=== PATIENT | female | born 1940 | race Caucasian/White ===

== ENCOUNTER 2016-08-06 00:32 | Emergency (ER) | payer OTHER ==
[~2016-08-06] VITALS: Ht 152.4 cm; Wt 53.0 kg
[~2016-08-06 00:32] MED LIST: BUSP10TA2; CALC-378; EYE DROP; OMEG-14; PARO10TA26; PREN1TAB49; SIMV5TAB31
[2016-08-06 01:10] VITALS: Ht 152.4 cm; Wt 53.0 kg
[2016-08-06] MEDS ORDERED: FLUORESCEIN STRIP LEFT EYE ONE (03:00)
[2016-08-06] MEDS ORDERED: TETRACAINE 0.5% 4 ML OPH LEFT EYE ONE (03:00)
--- NOTE | 2016-08-06 03:09 | ERD ---
ER Documentation Chief Complaint Date/Time DATE: 08/06/16 TIME: 03:07 Chief Complaint Unable to remove contact lens HPI 75-year-old female presents here in emergency department for complaints of possible contact lens stuck on the left eye, patient was trying to remove it, does not get removed. Patient feels that the contact lenses tach on the left eye. Patient denies any vision changes. Patient denies any eye discharge. Patient denies any direct trauma in the eye. She is complaining of pain and burning pain, with 3/10 scale, worst on touching the area ROS All systems reviewed and are negative except as per history of present illness. Medications Home Meds Active Scripts Moxifloxacin Hcl* (Vigamox*) 0.5% - 3 Ml Opht, 1 DROP LEFT EYE TID for 7 Days, EA Prov:ROSA CAZARES [employer] 08/06/16 Reported Medications [Eye Drop] No Conflict Check 10/14/10 Fish Oil/[place]-3 Fatty Acids (Fish Oil 1,200 Mg Softgel) 1 Cap Capsule 01/17/10 Calcium Carbonate/Vitamin D3 (Calcium + D 600 Mg Tablet) 1 Tab Tablet 01/17/10 Vits W-Ca,Fe,Fa(<1MG) () 1 Tab Tablet 01/17/10 Simvastatin* (Zocor*) 5 Mg Tablet 01/17/10 Buspirone Hcl* (Buspirone Hcl*) 10 Mg Tablet 01/17/10 Paroxetine Hcl* (Paxil*) 10 Mg Tablet 01/17/10 Allergies Allergies: Coded Allergies: Penicillins (Verified Allergy, Mild, 10/14/10) PMhx/Soc Medical and Surgical Hx: pt denies Surgical Hx History of Surgery: No Anesthesia Reaction: No Hx Neurological Disorder: No Hx Respiratory Disorders: No Hx Cardiac Disorders: Yes (DYSLIPIDEMIA) Hx Psychiatric Problems: No Hx Miscellaneous Medical Probl: No Hx Alcohol Use: No Hx Substance Use: No Hx Tobacco Use: Yes Smoking Status: Light tobacco smoker FmHx Family History: No coronary disease, No diabetes, No other Physical Exam Vitals Vital Signs Date Time Temp Pulse Resp B/P Pulse Ox O2 Delivery O2 Flow Rate FiO2 08/06/16 01:10 97.3 96 20 119/58 96 Physical Exam GENERAL: The patient is well developed and appropriate for usual state of health, in no apparent distress. CHEST: Clear to auscultation bilaterally. There are no rales, wheezes or rhonchi. HEART: Regular rate and rhythm. No murmurs, clicks, rubs or gallops. No S3 or S4. ABDOMEN: Soft, nontender and nondistended. Good bowel sounds. No rebound or guarding. No gross peritonitis. No gross organomegaly or masses. No Campbell sign or McBurney point tenderness. BACK: No midline or flank tenderness. EXTREMITIES: Equal pulses bilaterally. There is no peripheral clubbing, cyanosis or edema. No focal swelling or erythema. Full range of motion. Grossly neurovascularly intact. NEURO: Alert and oriented. Cranial nerves 2-12 intact. Motor strength in all 4 extremities with 5/5 strength. Sensation grossly intact. Normal speech and gait. SKIN: There is no apparent rash or petechia. The skin is warm and dry. HEMATOLOGIC AND LYMPHATIC: There is no evidence of excessive bruising or lymphedema. No gross cervical, axillary, or inguinal lymphadenopathy. Results 24 hrs Current Medications Medications (Trade) Dose Ordered Sig/[place] Route PRN Reason Start Time Stop Time Status Last Admin Dose Admin Tetracaine HCl (Tetracaine 0.5% Steri-Unit Sheryl) 1 drop ONCE ONCE LEFT EYE 08/06/16 03:00 3 03:01 DC Fluorescein Sodium (Redag-S-Myxhb) 1 strip ONCE ONCE LEFT EYE 08/06/16 03:00 3 03:01 DC Procedure Note: After obtaining informed consent, the left eye was stained using fluorescein dye. Tetracaine opth soln was also used to numb the left eye. After staining the eye, A Wood's lamp was used to evaluate the eye. Noted left eye to have the contact lens, this was removed without any difficulty. No corneal abrasions noted. Patient tolerated procedure well. Procedures/MDM Medical decision making: Patient's left eye contact lens was removed without any difficulty. No corneal abrasions noted. No symptoms of any other eye emergencies at this time. Patient was given Vigamox ophthalmic solution to prevent infection of the affected area, is advised to see eye doctor within 2-3 days for further evaluation. Patient was advised to return to emergency department for any worsening symptoms. Departure Diagnosis: Primary Impression: Eye foreign body Encounter type: initial encounter Laterality: left Qualified Code: T15.92XA - Eye foreign body, left, initial encounter Condition: Stable ROSA CAZARES NP Aug 06, 2016 03:09
[2016-08-06] MEDS ORDERED: VIGA LEFT EYE (04:03)
[2016-08-06 04:25] VITALS: PULSE 78; RESP 20; TEMP 98
== END 2016-08-06 05:14 | disposition home or self-care (01) ==
LOC: FTE 00:32
DX: T15.92XA Foreign body on external eye, part unspecified, left eye, initial encounter (principal); F17.210 Nicotine dependence, cigarettes, uncomplicated; W22.8XXA Striking against or struck by other objects, initial encounter; Y92.9 Unspecified place or not applicable
CPT/HCPCS: 99283

== ENCOUNTER 2016-11-19 01:05 | Emergency (ER) | payer OTHER ==
[~2016-11-19] VITALS: Wt 55.0 kg
[~2016-11-19 01:05] MED LIST changes: +VIGA LEFT EYE
--- NOTE | 2016-11-19 02:27 | ERD ---
ER Documentation Chief Complaint Date/Time DATE: 11/19/16 TIME: 02:23 Chief Complaint Contact lens stuck on the left eye. HPI 76 year old female presents here in emergency department for a contact lens stuck on to the left upper eyelid. Patient has had this same incident before. Patient denies any pain. Denies any vision changes. ROS All systems reviewed and are negative except as per history of present illness. Medications Home Meds Active Scripts Moxifloxacin Hcl* (Vigamox*) 0.5% - 3 Ml Opht, 1 DROP LEFT EYE TID for 7 Days, EA Prov:ROSA CAZARES [employer] 08/06/16 Reported Medications [Eye Drop] No Conflict Check 10/14/10 Fish Oil/[place]-3 Fatty Acids (Fish Oil 1,200 Mg Softgel) 1 Cap Capsule 01/17/10 Calcium Carbonate/Vitamin D3 (Calcium + D 600 Mg Tablet) 1 Tab Tablet 01/17/10 Vits W-Ca,Fe,Fa(<1MG) () 1 Tab Tablet 01/17/10 Simvastatin* (Zocor*) 5 Mg Tablet 01/17/10 Buspirone Hcl* (Buspirone Hcl*) 10 Mg Tablet 01/17/10 Paroxetine Hcl* (Paxil*) 10 Mg Tablet 01/17/10 Allergies Allergies: Coded Allergies: Penicillins (Verified Allergy, Mild, 10/14/10) PMhx/Soc History of Surgery: No Anesthesia Reaction: No Hx Neurological Disorder: No Hx Respiratory Disorders: No Hx Cardiac Disorders: Yes (DYSLIPIDEMIA) Hx Psychiatric Problems: No Hx Miscellaneous Medical Probl: No Hx Alcohol Use: No Hx Substance Use: No Hx Tobacco Use: Yes FmHx Family History: No coronary disease, No diabetes, No other Physical Exam Vitals Vital Signs Date Time Temp Pulse Resp B/P Pulse Ox O2 Delivery O2 Flow Rate FiO2 11/19/16 01:11 97.4 96 20 119/67 96 Physical Exam GENERAL: The patient is well developed and appropriate for usual state of health, in no apparent distress. HEENT: Atraumatic. Ears: Normal tympanic membrane, no erythema or bulging. No ear canal swelling. No ear discharge. Nose: normal nasal turbinates, no erythema or swelling. Normal nasal discharge. Throat: oropharynx clear. No tonsillar swelling or tonsillar exudates. No lymphadenopathy. CHEST: Clear to auscultation bilaterally. There are no rales, wheezes or rhonchi. HEART: Regular rate and rhythm. No murmurs, clicks, rubs or gallops. No S3 or S4. ABDOMEN: Soft, nontender and nondistended. Good bowel sounds. No rebound or guarding. No gross peritonitis. No gross organomegaly or masses. No Campbell sign or McBurney point tenderness. BACK: No midline or flank tenderness. EXTREMITIES: Equal pulses bilaterally. There is no peripheral clubbing, cyanosis or edema. No focal swelling or erythema. Full range of motion. Grossly neurovascularly intact. NEURO: Alert and oriented. Cranial nerves 2-12 intact. Motor strength in all 4 extremities with 5/5 strength. Sensation grossly intact. Normal speech and gait. SKIN: There is no apparent rash or petechia. The skin is warm and dry. HEMATOLOGIC AND LYMPHATIC: There is no evidence of excessive bruising or lymphedema. No gross cervical, axillary, or inguinal lymphadenopathy. Results 24 hrs Current Medications Medications (Trade) Dose Ordered Sig/[place] Route PRN Reason Start Time Stop Time Status Last Admin Dose Admin Tetracaine HCl (Tetracaine 0.5% Steri-Unit Sheryl) 1 drop ONCE ONCE LEFT EYE 11/19/16 02:30 11/19/16 02:31 DC Procedures/MDM Procedure note: After patient's verbal consent, the left eye was numbed using tetracaine ophthalmic solution, after numbing the area, the contact lens was found to be in the left upper eyelid, it is removed without any difficulty. Patient tolerated procedure well. Medical decision making: Patient has a lens stuck on the left eye, patient will be given Vigamox ophthalmic solution to prevent infection of affected area. No visualized obvious corneal abrasion at this time. A follow-up with primary care doctor in 2-3 days for reevaluation symptoms. Patient was advised to return to emergency department for any worsening symptoms. Patient is advised to see eye doctor. Departure Diagnosis: Primary Impression: Eye foreign body Encounter type: initial encounter Laterality: left Qualified Code: T15.92XA - Eye foreign body, left, initial encounter Condition: Stable Patient Instructions: Corneal Foreign Body, Removed ROSA CAZARES NP Nov 19, 2016 02:27
[2016-11-19] MEDS ORDERED: TETRACAINE 0.5% 4 ML OPH LEFT EYE ONE (02:30)
[2016-11-19] MEDS ORDERED: VIGA LEFT EYE (02:55)
== END 2016-11-19 02:58 | disposition home or self-care (01) ==
LOC: FTE 01:05
DX: T15.92XA Foreign body on external eye, part unspecified, left eye, initial encounter (principal); X58.XXXA Exposure to other specified factors, initial encounter; Y92.9 Unspecified place or not applicable; Z87.891 Personal history of nicotine dependence
CPT/HCPCS: 99283

== ENCOUNTER 2016-12-14 23:40 | Emergency (ER) | payer OTHER ==
[~2016-12-14] VITALS: Ht 157.5 cm; Wt 54.5 kg
[2016-12-14 23:46] VITALS: Ht 157.5 cm; Wt 54.5 kg
[2016-12-15] MEDS ORDERED: VIGA LEFT EYE (03:28)
[2016-12-15] MEDS ORDERED: FLUORESCEIN STRIP LEFT EYE ONE (03:30)
[2016-12-15] MEDS ORDERED: TETRACAINE 0.5% 4 ML OPH LEFT EYE SCH (03:30)
--- NOTE | 2016-12-15 03:45 | ERD ---
ER Documentation Chief Complaint Date/Time DATE: 12/15/16 TIME: 03:42 Chief Complaint could not get her eye contact lens out,been here for same prob few wks ago HPI 76-year-old female presents here in emergency department for complaints of her contact lens being stuck on her left eye. Patient has been here before for the same problems. Patient denies any eye discharge. Patient denies any problems with vision. Patient denies any eye pain. She tried to remove the contact lens but to no avail. ROS All systems reviewed and are negative except as per history of present illness. Medications Home Meds Active Scripts Moxifloxacin Hcl* (Vigamox*) 0.5% - 3 Ml Opht, 1 DROP LEFT EYE TID for 7 Days, EA Prov:ROSA CAZARES [employer] 12/15/16 Moxifloxacin Hcl* (Vigamox*) 0.5% - 3 Ml Opht, 1 DROP LEFT EYE TID for 7 Days, EA Prov:ROSA CAZARES [employer] 11/19/16 Moxifloxacin Hcl* (Vigamox*) 0.5% - 3 Ml Opht, 1 DROP LEFT EYE TID for 7 Days, EA Prov:ROSA CAZARES [employer] 08/06/16 Reported Medications [Eye Drop] No Conflict Check 10/14/10 Fish Oil/[place]-3 Fatty Acids (Fish Oil 1,200 Mg Softgel) 1 Cap Capsule 01/17/10 Calcium Carbonate/Vitamin D3 (Calcium + D 600 Mg Tablet) 1 Tab Tablet 01/17/10 Vits W-Ca,Fe,Fa(<1MG) () 1 Tab Tablet 01/17/10 Simvastatin* (Zocor*) 5 Mg Tablet 01/17/10 Buspirone Hcl* (Buspirone Hcl*) 10 Mg Tablet 01/17/10 Paroxetine Hcl* (Paxil*) 10 Mg Tablet 01/17/10 Allergies Allergies: Coded Allergies: Penicillins (Verified Allergy, Mild, 10/14/10) PMhx/Soc History of Surgery: No Anesthesia Reaction: No Hx Neurological Disorder: No Hx Respiratory Disorders: No Hx Cardiac Disorders: Yes (DYSLIPIDEMIA) Hx Psychiatric Problems: No Hx Miscellaneous Medical Probl: No Hx Alcohol Use: Yes (social) Hx Substance Use: No Hx Tobacco Use: Yes Smoking Status: Current every day smoker FmHx Family History: No coronary disease, No diabetes, No other Physical Exam Vitals Vital Signs Date Time Temp Pulse Resp B/P Pulse Ox O2 Delivery O2 Flow Rate FiO2 12/14/16 23:46 97.3 90 18 129/65 97 Physical Exam GENERAL: The patient is well developed and appropriate for usual state of health, in no apparent distress. HEENT: Atraumatic. Bilateral eyes are PERRL EOM intact. Noted contact lens stuck on the left conjunctiva. Ears: Normal tympanic membrane, no erythema or bulging. No ear canal swelling. No ear discharge. Nose: normal nasal turbinates , no erythema or swelling. Normal nasal discharge. Throat: oropharynx clear. No tonsillar swelling or tonsillar exudates. No lymphadenopathy. CHEST: Clear to auscultation bilaterally. There are no rales, wheezes or rhonchi. HEART: Regular rate and rhythm. No murmurs, clicks, rubs or gallops. No S3 or S4. ABDOMEN: Soft, nontender and nondistended. Good bowel sounds. No rebound or guarding. No gross peritonitis. No gross organomegaly or masses. No Campbell sign or McBurney point tenderness. BACK: No midline or flank tenderness. EXTREMITIES: Equal pulses bilaterally. There is no peripheral clubbing, cyanosis or edema. No focal swelling or erythema. Full range of motion. Grossly neurovascularly intact. NEURO: Alert and oriented. Cranial nerves 2-12 intact. Motor strength in all 4 extremities with 5/5 strength. Sensation grossly intact. Normal speech and gait. SKIN: There is no apparent rash or petechia. The skin is warm and dry. HEMATOLOGIC AND LYMPHATIC: There is no evidence of excessive bruising or lymphedema. No gross cervical, axillary, or inguinal lymphadenopathy. Results 24 hrs Current Medications Medications (Trade) Dose Ordered Sig/[place] Route PRN Reason Start Time Stop Time Status Last Admin Dose Admin Tetracaine HCl (Tetracaine 0.5% Steri-Unit Sheryl) 1 drop ONCE LEFT EYE 12/15/16 03:30 12/15/16 03:26 Fluorescein Sodium (Msijd-A-Dmkvg) 1 strip ONCE ONCE LEFT EYE 12/15/16 03:30 12/15/16 03:31 DC 12/15/16 03:26 Procedures/MDM Procedure Note: After obtaining informed consent, the left eye is numbed using tetracaine ophthalmic solution and was stained using fluorescein dye. After staining the eye, A Wood's lamp was used to evaluate the eye. Eye contact lens noted to be stuck in the left conjunctiva. This was removed without any difficulty. No corneal abrasions noted. Patient tolerated procedure well. Medical decision-making: Is a contact lens stuck in the left eye, this was removed without any difficulty. No symptoms of any infection, no abrasion noted. Patient is advised to see eye doctor for further evaluation. Patient was given the, to prevent infection of the eye. Patient was advised to return to emergency department for any worsening symptoms. Follow-up with primary care doctor, eye doctor within 1-2 days Departure Diagnosis: Primary Impression: Eye foreign body Encounter type: initial encounter Laterality: left Qualified Code: T15.92XA - Eye foreign body, left, initial encounter Condition: Stable Patient Instructions: Corneal Foreign Body, Removed ROSA CAZARES NP Dec 15, 2016 03:44
== END 2016-12-15 03:38 | disposition home or self-care (01) ==
LOC: FTE 23:40
DX: T15.92XA Foreign body on external eye, part unspecified, left eye, initial encounter (principal); F17.210 Nicotine dependence, cigarettes, uncomplicated; X58.XXXA Exposure to other specified factors, initial encounter; Y92.9 Unspecified place or not applicable
CPT/HCPCS: 99283